=== PATIENT | female | born 1995 | race Caucasian/White ===

== ENCOUNTER 2017-06-23 13:13 | Day surgery (SDC) | payer BC ==
[~2017-06-23] VITALS: Ht 149.9 cm; Wt 43.2 kg
[2017-06-23 13:57] VITALS: Ht 149.9 cm; Wt 43.2 kg
[2017-06-23] MEDS ORDERED: MESA0.372 PO (13:59)
[2017-06-23 14:20] VITALS: BP 122/60; PULSE 92; RESP 19
[2017-06-23] MEDS ORDERED: LIDOCAINE 2% (SDV) 5 ML INJ ONE (15:48)
[2017-06-23] MEDS ORDERED: PROPOFOL 60 ML ONE (15:48)
--- NOTE | 2017-06-23 16:41 | OPPN ---
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 Multiple biopsies obtained Otherwise normal colonic mucosa. Multiple biopsies obtained Small internal hemorrhoids. Normal terminal ileum Plan: Rowasa enemas nightly Restart Apriso 4.8 g daily Review pathology as soon as available Follow up as previously scheduled . Procedure Performed: Other (Colonoscopy with biopsies) Surgeon MICHELLE GOODEN MD Coremaker Helper none Anesthesia Type: MAC Anesthesiologist: REUBEN PEÑALOZA MD Tourniquet Time none EBL none Transfusion required none Biopsy 1: Ascending colon Biopsy 2: Transverse colon Biopsy 3: Descending colon Additional Biopsy: Sigmoid colon. Rectum Grafts/Implants none Tubes/Drains none Complication(s) none Disposition: home Procedure Description After informed consent, with the patient/relatives understanding the procedure, its indications and potential risks and complications, including but not limited to: Allergic reaction, bleeding, perforation, infection, and after all pertinent questions were answered to the patient's satisfaction, the patient/ relatives signed the witnessed informed consent. Following this, premedication was administered slowly IV push under careful cardiovascular and respiratory monitoring with pulse [employer], automatic blood pressure, and shelter monitor. Once the sedative effect was achieved, the patient was placed in the left lateral decubitus position, digital rectal examination was performed. The colonoscope was then introduced and advanced under visual control throughout all segments of the colon including: the rectum, sigmoid, descending colon, splenic flexure, transverse colon, hepatic flexure, ascending colon and finally reaching the cecum which was clearly identified by transillumination, finger indentation and the ileocecal valve. The terminal ileum was examined. Careful examination of the mucosa of the lower gastrointestinal tract both on insertion as well as withdrawal of the instrument disclosed the following findings: PREPARATION QUALITY: [Adequate], RECTAL EXAM: The anorectal area was visualized examined and digital rectal examination performed with the following findings: No evidence of perirectal disease, no masses. COLONIC MUCOSA: The mucosa of all segments of the colon was carefully examined and showed the following findings: There is erythema, edema, granularity and superficial aphthous erosion/ulcer in the rectum extending to approximately 25 cm. The remainder of the colonic mucosa is unremarkable. Terminal ileum is unremarkable as well. Otherwise the examined mucosa appears within normal limits. There is no evidence of diverticular formation, polyps or other neoplasms, vascular malformation, or any other abnormality. Biopsies were obtained from all segments of the colon. The instrument was then withdrawn, the patient tolerated the procedure well and was transferred out of the Endoscopy Suite awake and in good condition to continue recovery under observation. Copies To: CC: MICHELLE GOODEN MD, MORDO MD Jun 23, 2017 16:41
[2017-06-23 16:50] VITALS: BP 113/77; RESP 14
== END 2017-06-23 18:10 | disposition home or self-care (01) ==
LOC: GIL 13:13
PROVIDERS: ATTEND Internal Medicine Gastroenterology
DX: K51.20 Ulcerative (chronic) proctitis without complications (principal); K64.8 Other hemorrhoids
CPT/HCPCS: 45380; 84703; 88305; Z7610